=== PATIENT | female | born 2000 | race Caucasian/White ===

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

== ENCOUNTER 2019-01-04 12:36 | Emergency (ER) | payer SELFPAY, OTHER ==
[2019-01-04] MEDS: DEXAMETHASONE 10 MG/ML 1 ML INJ IM (15:07)
[2019-01-04] MEDS: IPRATROPIUM (NEB) 0.5 MG/2.5 ML AMP HHN (15:15)
[2019-01-04] MEDS: ALBUTEROL 0.083% (NEB) 2.5 MG/3 ML AMP HHN (15:15)
== END 2019-01-04 16:56 | disposition home or self-care (01) ==
LOC: FTE 12:36
DX: J45.901 Unspecified asthma with (acute) exacerbation (principal)
CPT/HCPCS: 71045; 81025; 94664; 96372; 99284-25

== ENCOUNTER 2019-03-12 17:54 | Emergency (ER) | payer SELFPAY ==
[2019-03-12] MEDS: predniSONE 20 MG TAB PO (20:02)
[2019-03-12] MEDS: IPRATROPIUM (NEB) 0.5 MG/2.5 ML AMP NEB (20:06)
[2019-03-12] MEDS: ALBUTEROL 0.083% (NEB) 2.5 MG/3 ML AMP NEB (20:06)
== END 2019-03-12 20:34 | disposition home or self-care (01) ==
LOC: FTE 17:54
DX: J45.901 Unspecified asthma with (acute) exacerbation (principal)
CPT/HCPCS: 94664; 99283-25